=== PATIENT | female | born 1975 | race Caucasian/White ===

== ENCOUNTER → 2017-08-20 08:50 | Outpatient (CLI) | payer OTHER, SELFPAY ==
--- NOTE | 2017-08-20 08:53 | BI_ITS ---
MAMMOGRAPHY - BILATERAL SCREENING REASON FOR EXAM: Female, 42 years old. Routine annual screening examination. PERTINENT HISTORY: Grandmother with breast cancer. Prior left excisional breast biopsy. TECHNIQUE: Digital bilateral breast maris (3D mammographic acquisition) in the CC and MLO projections. 2-D mediolateral oblique (MLO) and craniocaudad (CC) views of both breasts were obtained. CAD: Full Field Digital Mammography with Computer Added Detection was performed. COMPARISON: Comparison is made with prior study dated July 05, 2016 and June 26, 2015. FINDINGS: Breast Composition: The breasts are heterogeneously dense, which may obscure small masses. There are no dominant masses or suspicious calcifications. No other significant abnormalities are identified. There has been no significant change since the prior study. BI/SCREENING MAMM (CAD), BILAT IMPRESSION: Stable bilateral screening mammogram. Yearly follow-up mammogram recommended. (A) ASSESSMENT CATEGORY: BIRADS Category 1: Negative. A letter regarding these results will be sent to the patient by the facility within 30 days. Approximately 10% of breast cancers are not detected by mammography. A normal mammogram should not delay biopsy of a clinically suspicious abnormality. [id number] Electronically Signed: Fazal Mejia MD at 8:19 EDT Tel [phone], Service support ,
== END ==
PROVIDERS: Family Provider Family Medicine; PCP Family Medicine; Visit Provider Obstetrics & Gynecology
DX: Z12.31 Encounter for screening mammogram for malignant neoplasm of breast (principal)
CPT/HCPCS: 77063; 77067

== ENCOUNTER → 2018-06-02 11:39 | Outpatient (CLI) | payer OTHER, SELFPAY ==
[2018-06-02 16:00] LABS: T4 Free Direct 1.27 ng/dL (0.76-1.46); Thyroid Stim Hormone (TSH) 0.24 uIU/mL (0.358-3.74)
== END ==
PROVIDERS: Family Provider Family Medicine; PCP Family Medicine; Referring Provider Family Medicine; Visit Provider Family Medicine
DX: E03.9 Hypothyroidism, unspecified (principal)
CPT/HCPCS: 36415; 84439; 84443

== ENCOUNTER 2018-09-06 06:41 | Emergency (ER) | payer OTHER, SELFPAY ==
[2018-09-06 06:41] VITALS: BP 136/88; PULSE 86; RESP 18; TEMP 36.7; O2SAT 100; BMI 30.1
[2018-09-06] MEDS: morphine 8 MG/ML Syringe IM (07:09)
[2018-09-06] MEDS: diazePAM 5 MG Tablet PO (07:09)
--- NOTE | 2018-09-06 07:28 | ED.VISSUMM ---
- ER Visit Summary Date of Service: 09/06/18 Chief Complaint: Back pain History of Present Illness: The patient is a 43 F who presents the emergency department with low back pain. Patient had been doing yoga but recently stopped. In the past couple weeks she has had episodic low back pain that has improved. Unfortunately yesterday she went to get off the couch when she stood up had muscle spasm in the low back. There are no lower extremity radicular symptoms. No bowel or bladder dysfunction. No fevers or history of IV drug use. No rashes. Patient has been using heat. She took Flexeril and anti-inflammatories. She has also been using a back brace. She feels better in the Cobra position. Painful motion. Physical Examination: Afebrile vital signs are stable Gen: Well-nourished well-developed Head: Normocephalic atraumatic Eyes: Perrl EOMI ENT: TMs clear no rhinorrhea moist mucous membranes Neck: Supple no lymphadenopathy no JVD nontender CVS: Regular rate rhythm no murmurs normal S1-S2 Respiratory: No distress clear to auscultation bilaterally chest nontender Abdomen: Soft nontender nondistended normal bowel sounds no masses Back: Bilateral paraspinal muscle spasm of the lumbar region. No rashes or fluctuance to suggest abscess. Extremity: Nontender no edema Skin: Normal color no rash Neuro: alert orientated ?3 CN II-XII intact normal strength sensation Psych: Normal affect normal mood Emergency Department Course and Treatment: Patient received a dose of morphine and Valium. She is feeling some improvement. Patient be discharged home with instruction for Valium and Henderson. Discontinue Flexeril. Continue anti-inflammatories. Follow-up with primary care. We talked about stretching exercises as well as after this episode has resolved ways to decrease likelihood of recurrence such as strengthening core and daily stretching. Impression: 1. Acute lumbar muscle spasm This note was generated with [employer] dictation software. It may contain incorrect words, spelling, and punctuation that were not noted in review of the chart prior to signing ED Disposition - Plan for ED Patient: Disposition: Home or Assisted Living Instructions: BACK SPASM, No Trauma Prescriptions: Hydrocodone Bitart/Apap 5-325 [Henderson 5MG-325MG] 1 tab PO Q6H PRN PRN 3 Days #12 tab PRN Reason: Pain Prescription Printed Diazepam [Valium] 5 mg PO Q8 PRN 5 Days #15 tab PRN Reason: Muscle Spasm Prescription Printed Referrals: Mat Gregorio MD [Primary Care Provider] - 1 Week if not improving Additional Instructions: Until stretching. Continue heat. Would also recommend continued anti-inflammatories (i.e. Motrin 600 mg every 6 hours with food)
--- NOTE | 2018-09-06 08:05 | ED.RN ---
Spouse to return in 1 hr. Okay by solid waste landfill technician and MD for pt to stay and rest in room until returns. pt needs courtesy driver home. Rx x 2 sent to inpatient pharmacy for quick fills.
[2018-09-06 09:12] VITALS: BP 136/74; PULSE 72; RESP 16; O2SAT 99
== END 2018-09-06 09:13 | disposition home or self-care (01) ==
PROVIDERS: Emergency Provider Emergency Medicine; Family Provider Family Medicine; PCP Family Medicine
DX: M62.830 Muscle spasm of back (principal); Z79.899 Other long term (current) drug therapy
CPT/HCPCS: 96372; 99283

== ENCOUNTER → 2018-10-05 13:35 | Outpatient (CLI) | payer OTHER, SELFPAY ==
[2018-09-06 06:41] VITALS: BMI 30.1
== END ==
PROVIDERS: Family Provider Family Medicine; PCP Family Medicine; Referring Provider Family Medicine; Visit Provider Family Medicine
DX: R19.7 Diarrhea, unspecified (principal)
CPT/HCPCS: 87506

== ENCOUNTER → 2018-11-01 07:52 | Outpatient (CLI) | payer OTHER, SELFPAY ==
--- NOTE | 2018-11-01 07:56 | BI_ITS ---
MAMMOGRAPHY - BILATERAL SCREENING REASON FOR EXAM: Female, 43 years old. Routine annual screening examination. PERTINENT HISTORY: Grandmother with breast cancer. Remote left excisional breast biopsy. TECHNIQUE: Digital bilateral breast britney (3D mammographic acquisition) in the CC and MLO projections. 2-D mediolateral oblique (MLO) and craniocaudad (CC) views of both breasts were obtained. CAD: Full Field Digital Mammography with Computer Added Detection was performed. COMPARISON: Comparison is made with prior study dated August 20, 2017 and July 05, 2016. FINDINGS: Breast Composition: The breasts are heterogeneously dense, which may obscure small masses. There are no dominant masses or suspicious calcifications. No other significant abnormalities are identified. There has been no significant change since the prior study. BI/SCREEN MAMM (CAD) W/BRITNEY BILAT IMPRESSION: Stable bilateral screening mammogram. Yearly follow-up mammogram recommended. (A) ASSESSMENT CATEGORY: BIRADS Category 1: Negative. A letter regarding these results will be sent to the patient by the facility within 30 days. Approximately 10% of breast cancers are not detected by mammography. A normal mammogram should not delay biopsy of a clinically suspicious abnormality. [id number] Electronically Signed: Fazal Mejia, at 10:15 EDT , Service support ,
== END ==
PROVIDERS: Family Provider Family Medicine; PCP Family Medicine; Referring Provider Obstetrics & Gynecology; Visit Provider Obstetrics & Gynecology
DX: Z12.31 Encounter for screening mammogram for malignant neoplasm of breast (principal)
CPT/HCPCS: 77063; 77067

== ENCOUNTER → 2019-03-15 09:48 | Outpatient (CLI) | payer OTHER, SELFPAY ==
[2019-03-15 13:15] LABS: T4 Free Direct 1.18 ng/dL (0.76-1.46); Thyroid Stim Hormone (TSH) 0.85 uIU/mL (0.358-3.74)
== END ==
PROVIDERS: PCP Family Medicine; Referring Provider Family Medicine; Visit Provider Family Medicine
DX: E03.9 Hypothyroidism, unspecified (principal)
CPT/HCPCS: 36415; 84439; 84443

== ENCOUNTER 2019-05-17 11:08 | Emergency (ER) | payer OTHER, SELFPAY ==
[2019-05-17] VITALS (7 sets, daily range): BP systolic 126–157; BP diastolic 83–101; PULSE 71–94; RESP 16–18; TEMP 37.4–37.6; O2SAT 96–100; BMI 30.9
--- NOTE | 2019-05-17 11:42 | RAD_ITS ---
We are attempting to reach an attending provider to discuss findings. An addendum with communication details will be sent when the communication is complete. STUDY: X-RAY CHEST REASON FOR EXAM: Female, 43 years old. FEVER SINCE TUESDAY. NO COUGH TECHNIQUE: PA and lateral views of the chest. COMPARISON: 03/21/1959 FINDINGS: 4 cm oval opacity me upper right lung worrisome for a mass and correlation with CT the chest with contrast is recommended. There is no demonstrated pleural abnormality. Normal size heart. Normal mediastinum and cameron. Normal visualized pulmonary arteries. Normal visualized aortic arch and descending thoracic aorta. Normal visualized thoracic spine. Normal visualized ribs, clavicles, and shoulders. There is no demonstrated abnormality of the visualized soft tissue structures of the upper abdomen. RAD/Chest PA and Lateral IMPRESSION: Suspect 4 cm right upper lobe lung mass and correlation with CT the chest with contrast is recommended. Electronically Signed: Russ Blackburn MD at 12:51 EDT Tel , Service support ,
[2019-05-17 12:52] LABS: Mucous, Urine 0 SEEN /hpf (<or=2+); Red Blood Cells-Urine 0 SEEN /hpf (0-5); White Blood Cells 0 SEEN /hpf (0-5)
[2019-05-17 12:53] LABS: Absolute Lymphocyte Count 1.07 X10^3/uL (0.83-4.51); Absolute Neutrophil Count 4.5 X10^3/uL (2.0-7.7); Basophil# 0.02 X10^3/uL; Basophil% 0.3 % (0-1); Hematocrit 39.3 % (37-47); Lymphocyte # 1.07 X10^3/ul (4.0); Mean Corp Hgb Conc 33.1 g/dL (32-36); Mean Corpuscular Hgb 29.3 pg (27.0-32.0); Mean Corpuscular Volume 88.7 fL (81-99); Mean Platelet Vol. 10.6 fl (6.2-12.0); Monocyte# 0.65 X10^3/uL; Monocyte% 10.3 % (0-10); NRBC Flagged by Analyzer 0 % (0-5); Neutrophil # 4.54 X10^3/uL (2.7-7.7); Neutrophil % 72.1 % (47-70); Platelet Count 202 K/mm3 (150-450); RBC Distribution Width CV 12.3 % (11.6-14.6); RBC Distribution Width SD 40.1 fl (35.1-43.9); Red Blood Count 4.43 M/mm3 (4.2-5.4); White Blood Count 6.3 K/mm3 (4.4-11.0)
--- NOTE | 2019-05-17 12:59 | CT_ITS ---
STUDY: CT CHEST WITH CONTRAST REASON FOR EXAM: Female, 43 years old. RUL MASS RADIATION DOSAGE (If Supplied By Facility): CTDIvol = ( 14.06 ) mGy, DLP = ( 495.37 ) mGycm TECHNIQUE: Transaxial imaging was performed following intravenous administration of IV 100mL [id number]. Individualized dose optimization techniques were used for this CT. COMPARISON: Chest x-ray earlier today FINDINGS: 3.4 x 3.8 cm density in the right upper lobe lungs with a few peripheral air bronchograms likely consistent with focal pneumonia but bronchogenic carcinoma cannot be excluded. Follow-up is recommended after resolution of symptoms to document resolution. No other pulmonary nodules or masses. There is no demonstrated pleural abnormality. Normal heart and pericardium. Normal mediastinum. Normal hilar regions. Normal enhanced pulmonary arteries. Normal aorta arch and descending thoracic aorta. Normal osseous structures. There is no demonstrated abnormality of the visualized upper abdomen. CT/Chest WITH Contrast IMPRESSION: 3.4 x 3.8 cm right upper lobe density likely consistent with focal pneumonia. Bronchogenic carcinoma cannot be excluded. Follow-up is recommended after resolution of symptoms to document resolution to exclude mass. Electronically Signed: Russ Blackburn MD at 14:03 EDT Tel , Service support ,
[2019-05-17 13:02] LABS: Color, Urine Straw (Yellow); Glucose, Dipstick Normal (Normal); Ketone-Dipstick Negative (Negative); Leukocyte Esterase-Dipstick Negative /ul (Negative); Nitrite-Dipstick Negative (Negative); Occult Blood-Urine Negative /ul (Negative); Protein-Dipstick Negative (Negative); Specific Gravity, Urine 1.005 (1.002-1.030); Urine Bilirubin Dipstick Negative (Negative); Urine Clarity Clear (Clear); Urine Urobilinogen Normal (Normal)
[2019-05-17] MEDS: 0.9% Normal Saline 1,000 ML 999 ML IV (13:15)
[2019-05-17 13:26] LABS: Bacteria RARE /hpf (None Seen); Squamous Epithelial Cells - UA 0-5 SEEN /hpf (5-10)
[2019-05-17 13:31] LABS: Anion Gap 6 (5-15); BUN 9 mg/dL (7-18); Calcium,Total 9.1 mg/dL (8.5-10.1); Chloride 106 mmol/L (98-107); Creatinine, Serum 0.75 mg/dL (0.55-1.02); EST Glomerular Filtration Rate 89 mL/min (>60); Est Glom Filt Rate - Afr Amer 108 mL/min (>60); Estimated Creatinine Clearance 84.38 ml/min; Glucose 94 mg/dL (74-106); Potassium 3.8 mmol/L (3.5-5.1); Sodium Level 140 mmol/L (136-145)
--- NOTE | 2019-05-17 13:32 | CT_ITS ---
STUDY: CT BRAIN WITH CONTRAST REASON FOR EXAM: Female, 43 years old. HEADACHE RADIATION DOSAGE (If Supplied By Facility): CTDIvol = ( 44.99 ) mGy, DLP = ( 745.49 ) mGycm TECHNIQUE: Transaxial CT imaging of the brain was performed post contrast administration. The examination was performed with intravenous administration of . Individualized dose optimization techniques were used for this CT. COMPARISON: None. FINDINGS: Normal soft tissue structures. Normal calvarium. Normal size ventricles and extra-axial spaces for the patient''s age. Normal white matter tracts of the cerebral hemispheres. Normal basal ganglia and thalami. Normal brainstem. Normal cerebellum. There is no intracranial hemorrhage. There are no findings of an acute ischemic infarction. Normal visualized paranasal sinuses. CT/Brain/Head WITH Contrast IMPRESSION: Normal enhanced CT scan of the brain. Electronically Signed: Russ Blackburn MD at 13:59 EDT Tel , Service support ,
--- NOTE | 2019-05-17 15:06 | ED.DCSUM_ITS ---
- ER Visit Summary Date of Service: 05/17/19 Chief Complaint: Fever and headache History of Present Illness: The patient is a 43 F Pap smear history of hypothyroidism. Prior hysterectomy. Patient states since Tuesday she is had a fever. Rest diffuse headache. No neck pain. No cough. No shortness of br eath. No dysuria. No abdominal pain. No sinus congestion. She denies any abdominal pain. Physical Examination: Vitals female no acute distress vital signs stable afebrile. Temperature 99.4. She does not look septic or toxic. H EENT exam normal. Moist use membranes. Neck nontender no lymphadenopathy no meningismus able to touch chin to chest. Lungs clear to auscultation bilaterally. Heart regular rhythm rate about 90 no murmur. Abdomen soft nontender normal bowel sounds no peritoneal signs. Patient moving all 4 extremities. Calves nontender. Skin no rash. Back nontender. Neurologically she is awake alert with no focal motor deficits. Test Results: CBC shows a white count of 6. H&H of 13 and 39. No bands. Chest x-ray is either a right upper lobe round pneumonia versus a mass. Radiologist was concerned for a possible mass. Clinically I thought it was a pneumonia. CAT scan was obtained and shows a right upper lobe suspicious for pneumonia. CAT scan scan of the brain was done because of the concern for possible chest mass and it was read as normal. Emergency Department Course and Treatment: Days of fever worked up for infectious etiology. Diagnosed with a right upper lobe pneumonia and started on Levaquin. Repeat exam patient is doing well at 1500 p.m. She and I discussed all of her test results. Treatment Plan: Levaquin daily. Tylenol Motrin for fever. I spoke with her primary care physician. Disposition: Discharge Impression: Acute right upper lobe pneumonia Fever This note was generated with [employer] dictation software. It may contain incorrect words, spelling, and punctuation that were not noted in review of the chart prior to signing ED Disposition - Plan for ED Patient: Referrals: Mat Gregorio MD [Primary Care Provider] -
--- NOTE | 2019-05-17 15:10 | ED.DEP ---
ED Disposition - Plan for ED Patient: Disposition: Home or Assisted Living Instructions: Pneumonia Prescriptions: levoFLOXacin tablet [Levaquin tablet] 750 mg PO DAILY #4 tab Prescription Printed Referrals: Mat Gregorio MD [Primary Care Provider] - 1 Week if not improving Additional Instructions: Plenty of fluids and rest. Alternate Tylenol Motrin for fever. Levaquin 1 dose a day for the next 4 days. Start tomorrow we gave you your first dose here. I also spoke to Dr. Gregorio discussed with his office they can call your son and an outpatient chest x-ray.
[2019-05-17] MEDS: levoFLOXacin 750 MG Tablet PO (15:19)
== END 2019-05-17 15:26 | disposition home or self-care (01) ==
PROVIDERS: Emergency Provider Emergency Medicine; PCP Family Medicine
DX: J18.9 Pneumonia, unspecified organism (principal); R50.9 Fever, unspecified; R51 Headache; E03.9 Hypothyroidism, unspecified; Z79.899 Other long term (current) drug therapy
CPT/HCPCS: 70460; 71046; 71260; 80048; 81001; 85025; 96360; 96361; 99284; J7030; Q9967

== ENCOUNTER → 2019-06-11 11:30 | Outpatient (CLI) | payer OTHER, SELFPAY ==
[2019-05-17 11:10] VITALS: BMI 30.9
--- NOTE | 2019-06-11 11:35 | RAD_ITS ---
STUDY: X-RAY CHEST REASON FOR EXAM: Female, 43 years old. PNEUMONIA FOLLOW UP. PATIENT STILL HAVING COUGHING. TECHNIQUE: PA and lateral views of the chest. COMPARISON: Comparison is made with prior study dated May 17, 2019. FINDINGS: The lungs are clear and expanded. There is no demonstrated pleural abnormality. Normal size heart. Normal mediastinum and cameron. Normal visualized pulmonary arteries. Normal visualized aortic arch and descending thoracic aorta. Normal visualized thoracic spine. Normal visualized ribs, clavicles, and shoulders. There is no demonstrated abnormality of the visualized soft tissue structures of the upper abdomen. RAD/Chest PA and Lateral IMPRESSION: The previously seen right upper lobe pneumonia has cleared. Electronically Signed: Fazal Mejia, at 11:50 EDT , Service support ,
== END ==
LOC: MTLAB 11:33 → MTRAD 11:34
PROVIDERS: PCP Family Medicine; Referring Provider Family Medicine; Visit Provider Family Medicine
DX: R05 Cough (principal)
CPT/HCPCS: 71046

== ENCOUNTER → 2019-09-04 | Outpatient (CLI) | payer OTHER, SELFPAY ==
[2019-05-17 11:10] VITALS: BMI 30.9
== END | disposition home or self-care (01) ==
LOC: LABSPEC 15:27
PROVIDERS: Referring Provider Otolaryngology Otolaryngology/Facial Plastic Surgery; Visit Provider Otolaryngology Otolaryngology/Facial Plastic Surgery
DX: J32.9 Chronic sinusitis, unspecified (principal)
CPT/HCPCS: 87070; 87205

== ENCOUNTER → 2019-09-25 07:00 | Outpatient (CLI) | payer OTHER, SELFPAY ==
[2019-05-17 11:10] VITALS: BMI 30.9
--- NOTE | 2019-09-25 07:04 | CT_ITS ---
STUDY: CT MAXILLOFACIAL SINUSES REASON FOR EXAM: Female, 44 years old. CHRONIC SINUSITIS, BLAS PROTOCOL, SINUS CONGESTION LT SIDE WORSE THAN RIGHT RADIATION DOSAGE (If Supplied By Facility): CTDIvol = ( 33.06 ) mGy, DLP = ( 780.13 ) mGycm TECHNIQUE: The patient was scanned in a multi detector CT scanner. High resolution axial imaging was performed without the administration of intravenous contrast material. Sagittal and coronal images were reconstructed. Individualized dose optimization techniques were used for this CT. COMPARISON: None. FINDINGS: FRONTAL SINUSES: Severe diffuse mucosal thickening of the left frontal sinus without air-fluid level.. ETHMOIDAL SINUSES: Moderate to severe focal thickening of the left ethmoid sinuses and mild to moderate mucosal thickening on the right. MAXILLARY SINUSES: Mucosal thickening of left maxillary sinus without air-fluid level and moderate mucosal thickening on the right. SPHENOIDAL SINUSES: Normal aeration, without mucosal inflammatory disease. There is patency of the left maxillary infundibuli with normal uncinate processes, ethmoid bullae, and hiatus semilunaris. The right maxillary sinus ostium and infundibulum are occluded due to mucosal thickening. Esperanza bullosa deformity of the right middle turbinate. Normal left middle turbinate.. Normal bilateral inferior turbinates. Normal midline nasal septum. There is patency of the bilateral nasal airways. The visualized osseous structures are normal. The visualized bilateral orbital contents are normal. CT/Sinus/Facial Bone IMPRESSION: Bilateral maxillary ethmoid and left frontal sinus disease without air-fluid levels likely chronic. Findings as above Electronically Signed: Juan Carlos Casey MD at 17:15 EDT , Service support ,
== END ==
PROVIDERS: PCP Family Medicine; Referring Provider Otolaryngology Otolaryngology/Facial Plastic Surgery; Visit Provider Otolaryngology Otolaryngology/Facial Plastic Surgery
DX: J32.9 Chronic sinusitis, unspecified (principal)
CPT/HCPCS: 70486

== ENCOUNTER → 2019-11-29 07:44 | Outpatient (CLI) | payer OTHER, SELFPAY ==
[2019-05-17 11:10] VITALS: BMI 30.9
--- NOTE | 2019-11-29 07:46 | BI_ITS ---
MAMMOGRAPHY - BILATERAL SCREENING REASON FOR EXAM: Female, 44 years old. Routine annual screening examination. PERTINENT HISTORY: Grandmother with breast cancer. Remote left excisional breast biopsy. TECHNIQUE: Digital bilateral breast britney (3D mammographic acquisition) in the CC and MLO projections. 2-D mediolateral oblique (MLO) and craniocaudad (CC) views of both breasts were obtained. CAD: Full Field Digital Mammography with Computer Added Detection was performed. COMPARISON: Comparison is made with prior examination dated 11/01/2018 and 08/20/2017. FINDINGS: Breast Composition: The breasts are heterogeneously dense, which may obscure small masses. There are no dominant masses or suspicious calcifications. No other significant abnormalities are identified. There has been no significant change since the prior study. BI/SCREEN MAMM (CAD) W/BRITNEY BILAT IMPRESSION: Stable bilateral screening mammogram. Yearly follow-up mammogram recommended. (A) ASSESSMENT CATEGORY: BIRADS Category 1: Negative. A letter regarding these results will be sent to the patient by the facility within 30 days. Approximately 10% of breast cancers are not detected by mammography. A normal mammogram should not delay biopsy of a clinically suspicious abnormality. [id number] Electronically Signed: Fazal Mejia, at 11:04 EDT , Service support ,
== END ==
PROVIDERS: PCP Family Medicine; Referring Provider Obstetrics & Gynecology; Visit Provider Obstetrics & Gynecology
DX: Z12.31 Encounter for screening mammogram for malignant neoplasm of breast (principal); Z80.3 Family history of malignant neoplasm of breast
CPT/HCPCS: 77063; 77067

== ENCOUNTER 2020-05-05 07:51 | Emergency (ER) | payer OTHER, SELFPAY ==
[2019-05-17 11:10] VITALS: BMI 30.9
[2020-05-05 07:52] VITALS: BP 140/93; PULSE 74; RESP 15; TEMP 36.2; O2SAT 100; BMI 32.5
--- NOTE | 2020-05-05 08:09 | ED.DCSUM_ITS ---
- ER Visit Summary Date of Service: 05/05/20 Chief Complaint: Chest and back pain History of Present Illness: The patient is a 44 F only significant past medical history is with prior hysterectomy and hypothyroidism. Also has a prior history of a hiatal hernia. Patient's had no cardiac history. Is never had a DVT or PE. No recent travel, surgery or immobilization. No significant family history of cardiac disease. She is a non-smoker. States that she thought she was having indigestion yesterday started around 4 PM. Took some Tums and Pepcid with relief. It intermittently came and went since yesterday afternoon. Says at times it does radiate into her back. She denies any vomiting, diarrhea or melena. No dysuria. No fever or chills. No shortness of breath. No significant cough. No hemoptysis. Physical Examination: Middle-aged female no acute distress vital signs stable afebrile. Pulse ox 100% on room air no signs of hypoxia. H EENT exam unremarkable. Neck nontender no lymphadenopathy. No JVD. Lungs clear to auscultation bilaterally. Heart regular rhythm rate about 70 no murmur. Chest wall nontender. Abdomen soft nontender normal bowel sounds no peritoneal signs. Right upper quadrant nontender. Patient moving all 4 extremities. Neurovascular intact. Calves are nontender without edema or cords. Equal symmetrical radial pulses. Neurologically the patient is awake and alert with no focal motor deficits. Test Results: EKG shows a normal sinus rhythm rate of 69 with no acute signs of TN or ischemia. Basically a normal EKG. Normal. Chemistries normal. Troponin normal. Chest x-ray portable 1 view interpreted by myself and also the radiologist shows no acute abnormality. Normal cardiac silhouette mediastinum. Normal aorta. No signs of dissection. Lung weir normal. Repeat exam patient is doing well at 10:15 AM. She will be treated with GI cocktail and Protonix. Clinically this appears to be gastroesophageal reflux. Emergency Department Course and Treatment: Patient with chest discomfort. Does not have significant cardiac risk factors. Its not exertional. There is no dyspnea. She has no DVT or PE significant risk factors. This may be reflux. She will undergo a cardiac work-up. I do not think it is a dissection. Treatment Plan: Prescription for Protonix. Follow-up with her primary care physician. Return if worse. Disposition: Discharge Impression: Acute chest pain secondary to gastroesophageal reflux This note was generated with [employer] dictation software. It may contain incorrect words, spelling, and punctuation that were not noted in review of the chart prior to signing ED Disposition - Plan for ED Patient: Referrals: Mat Gregorio MD [Primary Care Provider] -
--- NOTE | 2020-05-05 08:13 | EKG12_ITS ---
Test Reason : CP Blood Pressure : / mmHG Vent. Rate : 069 BPM Atrial Rate : 069 BPM P-R Int : 178 ms QRS Dur : 092 ms QT Int : 392 ms P-R-T Axes : 056 -02 041 degrees QTc Int : 420 ms Normal sinus rhythm Normal ECG Confirmed by CAMPBELL [place], EMIGDIO ([id number]), online content editor PIPO LUGO ([id number]) on 05/07/2020 10:08:55 AM Referred By: MR Confirmed By:EMIGDIO HIGHTOWER MD
[2020-05-05 08:16] VITALS: O2SAT 100
--- NOTE | 2020-05-05 08:20 | RAD_ITS ---
STUDY: X-RAY CHEST REASON FOR EXAM: Female, 44 years old. Chest pain TECHNIQUE: Single AP portable view of the chest. COMPARISON: Comparison is made with prior study dated 06/11/2019. FINDINGS: EKG electrodes are seen. The lungs are clear and expanded. There is no demonstrated pleural abnormality. Normal size heart. Normal mediastinum and cameron. Normal visualized pulmonary arteries. Normal visualized aortic arch and descending thoracic aorta. Normal visualized thoracic spine. Normal visualized ribs, clavicles, and shoulders. There is no demonstrated abnormality of the visualized soft tissue structures of the upper abdomen. RAD/Chest 1 View (Portable) IMPRESSION: Normal x-ray examination of the chest. Electronically Signed: Fazal Mejia MD at 8:35 EDT , Service support ,
[2020-05-05 08:21] LABS: Absolute Lymphocyte Count 2.02 X10^3/uL (0.83-4.51); Absolute Neutrophil Count 4.4 X10^3/uL (2.0-7.7); Basophil# 0.04 X10^3/uL; Basophil% 0.6 % (0-1); Eosinophils% 2.8 % (0-5); Hematocrit 39.5 % (37-47); Lymphocyte # 2.02 X10^3/ul (4.0); Lymphocyte % 28.5 % (19-41); Mean Corp Hgb Conc 32.9 g/dL (32-36); Mean Platelet Vol. 10.9 fl (6.2-12.0); Monocyte# 0.37 X10^3/uL; Monocyte% 5.2 % (0-10); NRBC Flagged by Analyzer 0 % (0-5); Neutrophil # 4.44 X10^3/uL (2.7-7.7); Neutrophil % 62.8 % (47-70); Platelet Count 225 K/mm3 (150-450); RBC Distribution Width CV 12.4 % (11.6-14.6); RBC Distribution Width SD 41.1 fl (35.1-43.9); Red Blood Count 4.34 M/mm3 (4.2-5.4); White Blood Count 7.1 K/mm3 (4.4-11.0)
[2020-05-05 08:59] LABS: Anion Gap 5 (5-15); BUN 15 mg/dL (7-18); BUN/Creat Ratio 19.1 RATIO (10-20); Calcium,Total 8.8 mg/dL (8.5-10.1); Chloride 107 mmol/L (98-107); Creatinine, Serum 0.79 mg/dL (0.55-1.02); EST Glomerular Filtration Rate 85 mL/min (>60); Est Glom Filt Rate - Afr Amer 102 mL/min (>60); Estimated Creatinine Clearance 79.29 ml/min; Glucose 98 mg/dL (74-106); Potassium 4.3 mmol/L (3.5-5.1); Sodium Level 138 mmol/L (136-145)
[2020-05-05 09:08] VITALS: BP 151/102; PULSE 66; RESP 17; O2SAT 100
[2020-05-05 10:12] VITALS: BP 131/116; PULSE 62; RESP 13; O2SAT 100
--- NOTE | 2020-05-05 10:20 | ED.DEP ---
ED Disposition - Plan for ED Patient: Disposition: Home or Assisted Living Instructions: ED Chest Pain, Uncertain Cause, ED GERD (Adult) Prescriptions: Pantoprazole Sodium [Protonix] 40 mg PO DAILY #30 tab Prescription Printed Referrals: Mat Gregorio MD [Primary Care Provider] - 3-5 Days if not improving Additional Instructions: Avoid alcohol and/or spicy or greasy foods. Protonix 40 mg twice a day for the first week and then once a day after that. Follow-up with your primary care physician.
[2020-05-05] MEDS: Pantoprazole Sodium 40 MG Tablet PO (10:47)
[2020-05-05] MEDS: Mag Hydrox/Al Hydrox/Simeth 30 ML UDC PO (10:47)
[2020-05-05 11:32] VITALS: BP 120/86; PULSE 82; RESP 16; O2SAT 98
== END 2020-05-05 11:33 | disposition home or self-care (01) ==
PROVIDERS: Emergency Provider Emergency Medicine; PCP Family Medicine
DX: K21.9 Gastro-esophageal reflux disease without esophagitis (principal); M54.9 Dorsalgia, unspecified; E03.9 Hypothyroidism, unspecified; Z79.899 Other long term (current) drug therapy
CPT/HCPCS: 71045; 80048; 84484; 85025; 93005; 99285; A4216

== ENCOUNTER → 2020-05-13 09:14 | Outpatient (CLI) | payer OTHER, SELFPAY ==
[2020-05-05 07:52] VITALS: BMI 32.5
[2020-05-13 10:54] LABS: T4 Free Direct 1.02 ng/dL (0.76-1.46)
== END ==
PROVIDERS: PCP Family Medicine; Visit Provider Family Medicine
DX: E03.9 Hypothyroidism, unspecified (principal)
CPT/HCPCS: 36415; 84439; 84443

== ENCOUNTER → 2020-07-11 08:51 | Outpatient (CLI) | payer OTHER, SELFPAY ==
[2020-07-11 10:42] LABS: T4 Free Direct 1.42 ng/dL (0.76-1.46); Thyroid Stim Hormone (TSH) 1.86 uIU/mL (0.358-3.74)
== END ==
PROVIDERS: PCP Family Medicine; Referring Provider Family Medicine; Visit Provider Family Medicine
DX: E03.9 Hypothyroidism, unspecified (principal)
CPT/HCPCS: 36415; 84439; 84443

== ENCOUNTER → 2020-07-30 09:03 | Outpatient (CLI) | payer OTHER, SELFPAY ==
--- NOTE | 2020-07-30 09:12 | RAD_ITS ---
STUDY: X-RAY - ESOPHAGUS (BARIUM SWALLOW) WITH FLUOROSCOPY REASON FOR EXAM: Female, 44 years old. Diaphragmatic hernia without obstruction or gangrene TECHNIQUE: 18 view(s) of the esophagus were obtained following swallowing of barium. FLUOROSCOPY TIME (if supplied): (28 seconds) minutes/seconds COMPARISON: None. FINDINGS: There is no demonstrated esophageal foreign body. There is no demonstrated stricture or mucosal abnormality. Normal gastroesophageal junction, without a demonstrated hiatal hernia. The patient ingested a 12 mm tablet of barium without any difficulty. Normal visualized aortic arch and descending thoracic aorta. Normal visualized pulmonary parenchyma. Normal visualized osseous structures of the thorax. RAD/Esophagus Single Contrast IMPRESSION: Normal plain film x-ray examination (barium swallow) of the esophagus. Electronically Signed: Fazal Mejia MD at 11:11 EDT , Service support ,
== END ==
PROVIDERS: PCP Family Medicine; Referring Provider Family Medicine; Visit Provider Family Medicine
DX: K44.9 Diaphragmatic hernia without obstruction or gangrene (principal)
CPT/HCPCS: 74220

== ENCOUNTER → 2020-11-04 16:34 | Outpatient (CLI) | payer OTHER, SELFPAY ==
--- NOTE | 2020-11-04 16:38 | RAD_ITS ---
STUDY: X-RAY - LUMBAR SPINE REASON FOR EXAM: Female, 45 years old. BACK PAIN TECHNIQUE: 5 view(s) of the lumbar spine were obtained. COMPARISON: None FINDINGS: Normal lumbar lordosis. There is no substantial scoliosis. There is a normal alignment of the vertebrae. Normal vertebral bodies and endplates. Normal disc space heights. The soft tissue structures are unremarkable. RAD/L/S Spine Min 4 Views IMPRESSION: Normal x-ray examination of the lumbar spine. Electronically Signed: Russ Blackburn MD at 13:55 EDT Tel , Service support ,
== END ==
PROVIDERS: PCP Family Medicine
DX: M54.2 Cervicalgia (principal)
CPT/HCPCS: 72110

== ENCOUNTER → 2020-12-19 11:49 | Outpatient (CLI) | payer OTHER, SELFPAY ==
[2020-12-19 15:49] LABS: Anion Gap 9 (5-15); BUN 17 mg/dL (7-18); BUN/Creat Ratio 21.7 RATIO (10-20); Chloride 105 mmol/L (98-107); Cholesterol 207 mg/dL (200); Creatinine, Serum 0.78 mg/dL (0.55-1.02); EST Glomerular Filtration Rate 85 mL/min (>60); Est Glom Filt Rate - Afr Amer 103 mL/min (>60); Glucose 80 mg/dL (74-106); High Density Lipoprotein 106 mg/dL; Potassium 4.4 mmol/L (3.5-5.1); Sodium Level 138 mmol/L (136-145); T4 Free Direct 1.37 ng/dL (0.76-1.46); Thyroid Stim Hormone (TSH) 0.87 uIU/mL (0.358-3.74); Triglycerides 107 mg/dL; Very Low Density Lipoprotein 21 mg/dL (5-40)
== END ==
PROVIDERS: PCP Family Medicine; Referring Provider Family Medicine; Visit Provider Family Medicine
DX: Z00.00 Encounter for general adult medical examination without abnormal findings (principal); E03.9 Hypothyroidism, unspecified
CPT/HCPCS: 36415; 80048; 80061; 84439; 84443

== ENCOUNTER 2021-04-16 15:19 | Outpatient (CLI) | payer OTHER, SELFPAY ==
--- NOTE | 2021-04-16 15:21 | BI_ITS ---
MAMMOGRAPHY - BILATERAL SCREENING REASON FOR EXAM: Female, 45 years old. Routine annual screening examination. PERTINENT HISTORY: Grandmother with breast cancer. Remote left excisional breast biopsy. TECHNIQUE: Digital bilateral breast britney (3D mammographic acquisition) in the CC and MLO projections. 2-D mediolateral oblique (MLO) and craniocaudad (CC) views of both breasts were obtained. CAD: Full Field Digital Mammography with Computer Added Detection was performed. COMPARISON: Comparison is made with prior study 11/29/2019 and 11/01/2018. FINDINGS: Breast Composition: The breasts are heterogeneously dense, which may obscure small masses. There are no dominant masses or suspicious calcifications. Stable small benign-appearing bilateral axillary lymph nodes. No other significant abnormalities are identified. There has been no significant change since the prior study. BI/SCRN MAMM (CAD)W/BRITNEY BILAT IMPRESSION: Stable bilateral screening mammogram. Yearly follow-up mammogram recommended. (A) ASSESSMENT CATEGORY: BIRADS Category 2: Benign. A letter regarding these results will be sent to the patient by the facility within 30 days. Approximately 10% of breast cancers are not detected by mammography. A normal mammogram should not delay biopsy of a clinically suspicious abnormality. [id number] Electronically Signed: Fazal Mejia MD at 16:12 EST ,
== END 2021-04-16 23:59 | disposition home or self-care (01) ==
LOC: OPBI 15:19
PROVIDERS: PCP Family Medicine; Visit Provider Obstetrics & Gynecology
DX: Z12.31 Encounter for screening mammogram for malignant neoplasm of breast (principal)
CPT/HCPCS: 77063; 77067

== ENCOUNTER → 2022-05-04 | Outpatient (CLI) | payer OTHER, SELFPAY ==
--- NOTE | 2022-05-04 15:59 | BI_ITS ---
MAMMOGRAPHY - BILATERAL SCREENING 3-D TOMOSYNTHESIS REASON FOR EXAM: Female, 46 years old. Routine screening PERTINENT HISTORY: Grandmother with breast cancer.. TECHNIQUE: 2-D mammograms and 3-D Tomosynthesis of the breast (s) were performed. CAD was performed. COMPARISON: 04/16/2021 FINDINGS: The breast composition is heterogeneously dense that can obscure small breast masses. Scattered benign calcifications are seen. No dense spiculated masses or suspicious microcalcifications are identified. No architectural distortion is identified. There is no skin thickening or retraction. There has been no significant change since the prior study. BI/SCRN MAMM (CAD)W/BRITNEY BILAT IMPRESSION: No mammographic signs of malignancy. Routine yearly mammograms recommended. ASSESSMENT CATEGORY: BIRADS Category 2: Benign. A letter regarding these results will be sent to the patient by the facility within 30 days. FOLLOW UP RECOMMENDATION: Yearly follow up mammogram recommended. (A) Approximately 10% of breast cancers are not detected by mammography. A normal mammogram should not delay biopsy of a clinically suspicious abnormality. Electronically Signed: Davey Clarke MD at 8:16 EDT ,
--- NOTE | 2022-05-04 16:05 | BD_ITS ---
STUDY: DUAL ENERGY X-RAY ABSORPTIOMETRY / DXA REASON FOR EXAM: Female, 46 years old. [id number] TECHNIQUE: Bone Mineral Density (BMD) measurements of lumbar spine and bilateral hips were obtained. COMPARISON: None. FINDINGS: Lumbar Spine (L1-L4): g/cm2 (0.916) / T-score (-1.2) / Z-score (-0.8) Findings are suggestive of osteopenia with a low fracture risk. Left Femur Total: g/cm2 (1.008) / T-score (0.5) / Z-score (0.8) Left Femoral Neck: g/cm2 (0.847) / T-score (0.0) / Z-score (0.4) Right Femur Total: g/cm2 (0.981) / T-score (0.3) / Z-score (0.6) Right Femoral Neck: g/cm2 (0.854) / T-score (0.0) / Z-score (0.5) BD/Dexa Bone Density Study IMPRESSION: The patient is considered normal as outlined below according to World [employer] Organization (WHO) criteria with a low fracture risk. Reference Information: The T-score is the number of standard deviations above or below the standard which is normal for young adults at their peak bone mineral density. The World Health Organization (WHO) interprets the T-scores as follows: Above -1 Normal bone density Between -1 and -2.5 Osteopenia Equal to / or below -2.5 Osteoporosis As a practical clinical guideline, osteopenia may be graded as follows: Mild -1 through -1.5 Moderate -1.6 through -2.0 Severe -2.1 through -2.4 The Z-score is the number of standard deviations above or below age-matched controls. A Z-score of less than -1.5 would be considered abnormal. References: 1. NIH Osteoporosis and Related Bone Diseases www osteo.org 2. International Society for Clinical Densitometry www iscd.org 3. National Osteoporosis Foundation www nof.org Electronically Signed: Fazal Mejia MD at 12:53 EDT ,
== END | disposition home or self-care (01) ==
LOC: OPBD 15:58
PROVIDERS: PCP Family Medicine; Visit Provider Student in an Organized Health Care Education/Training Program
DX: Z12.31 Encounter for screening mammogram for malignant neoplasm of breast (principal); N95.1 Menopausal and female climacteric states
CPT/HCPCS: 77063; 77067; 77080

== ENCOUNTER 2022-07-30 09:33 | Emergency (ER) | payer OTHER, SELFPAY ==
[2022-07-30 09:34] VITALS: BP 171/85; PULSE 99; RESP 16; TEMP 35.5; O2SAT 100; BMI 34.7
--- NOTE | 2022-07-30 10:13 | EDS_ITS ---
HPI History of Present Illness Chief Complaint: Dizziness Informant: patient Onset/Context/Timing Onset: Today Context: Sudden Onset Timing: Intermittent Quality: Lightheaded Location: Generalized Worsened by: Nothing Relieved by: Nothing Narrative Narrative: Patient presents with lightheadedness, sweats, and diarrhea that began suddenly today. Patient states she had a similar episode 2 days ago. Patient states this lasted approximately 10 minutes and then she felt nauseated afterwards. Patient states she feels lightheaded like she might pass out. Patient states nothing makes it better nothing makes it worse. Patient stated she had some mild throbbing in the right side of her neck 2 days ago and now she has a warm sensation over the left side of her neck today. Patient denies any headaches. Patient admits to some subjective chills. PFSH [facility] Medical History GERD (gastroesophageal reflux disease) Hypothyroid Home Medications estradiol 2 mg tablet 2 tab PO DAILY 05/14/13 [History Last Taken 01/19/15] levothyroxine 125 mcg tablet 125 mcg PO DINNER 05/17/19 [History Last Taken Unknown] pantoprazole 40 mg tablet,delayed release 40 mg PO DAILY #30 tabs 05/05/20 [Rx Last Taken Unknown] Allergy/AdvReac Type Severity Reaction Status Date / Time No Known Allergies Allergy Verified 07/30/22 09:34 Family History (Updated 05/03/22 @ 08:31 by Donna Kidd) Father Colon polyps Surgical History Hx of left breast biopsy Social History Smoking Status: Never smoker ROS ROS ED Constitutional Constitutional ED: Reports chills, subjective and sweats; Denies fever(s) Eyes Eyes: Denies blurry vision or change in vision ENT ENT ED: Denies rhinorrhea or sore throat Cardiovascular Cardiovascular: Denies chest pain or palpitations Respiratory/Chest Respiratory/Chest: Denies cough or dyspnea Gastrointestinal Gastrointestinal: Reports diarrhea and nausea; Denies abdominal pain or vomiting Genitourinary Genitourinary ED: Denies dysuria or hematuria Musculoskeletal Musculoskeletal: Reports neck pain; Denies back pain Integumentary Denies abscess or rash Neurologic Neurologic: Denies headache(s) or weakness Allergic/Immunologic Allergic/Immunologic ED: Denies mouth swelling or urticaria EXAM Physical Exam Const Vital Signs: 07/30/22 09:34 07/30/22 10:36 07/30/22 11:39 Temperature 95.9 F L Temperature Source Temporal Pulse Rate 99 83 Pulse Rate [Lying] 93 Pulse Rate [Standing (for 1 minute prior to obtaining)] 103 H Respiratory Rate 16 16 Blood Pressure 171/85 H 115/90 H Blood Pressure [Lying] 129/78 H Blood Pressure [Sitting (for 1 minute prior to obtaining)] 130/85 H Blood Pressure [Standing (for 1 minute prior to obtaining)] 152/81 H Blood Pressure Mean 113 98 Blood Pressure Mean [Lying] 95 Blood Pressure Mean [Sitting (for 1 minute prior to obtaining)] 100 Blood Pressure Mean [Standing (for 1 minute prior to obtaining)] 104 Pulse Ox 100 98 Oxygen Delivery Method Room Air Room Air Positive well nourished and well developed General Appearance ED: well developed and NAD HEENT Reports moist mucous membranes Neck supple and no JVD Resp normal respiratory effort and clear to auscultation bilaterally Cardio regular rate, regular rhythm and no murmurs GI normal to inspection, nondistended, normoactive bowel sounds and non-tender Palpation: soft Extremity normal to inspection General Extremety ED: Negative for edema or tenderness General Extremity: Negative for edema Neuro oriented x3, CN's II-XII intact bilaterally and no sensory deficits noted Sensorium / Orientation: alert Motor Exam: strength 5/5 throughout Psych mental status grossly normal Skin no rashes or lesions noted MDM MDM MDM Narrative Medical decision making narrative: Differential diagnosis includes cardiac dysrhythmia, cardiac ischemia, electrolyte abnormality, acute kidney injury, urinary tract infection, and dehydration. EKG will be obtained to assess for cardiac dysrhythmia and cardiac ischemia. CBC will be obtained to assess for anemia and leukocytosis. Basic metabolic profile will be obtained to assess for electrolyte abnormality and renal function. Urinalysis will be obtained to assess for urinary tract infection and hematuria. High-sensitivity troponin will be obtained to assess for cardiac ischemia. 2-hour repeat high-sensitivity troponin will be obtained to assess for ongoing cardiac ischemia. COVID-19 rapid antigen will be obtained to assess for COVID-19 infection. Influenza A and influenza B antigens will be obtained to assess for influenza infection. Lab Data Attestation: I reviewed the patient's lab results. Lab results narrative: CBC was reviewed and was within normal limits. Basic metabolic profile was reviewed and was within normal limits. Urinalysis was reviewed. There is no evidence of urinary tract infection or hematuria. High-sensitivity troponin was reviewed and was normal at 4. COVID-19 rapid antigen was reviewed and was positive. Influenza A and influenza B antigens were reviewed and were negative. Labs: Laboratory Results - last 24 hr 07/30/22 07/30/22 07/30/22 10:00 10:00 11:31 WBC 5.3 RBC 4.66 Hgb 13.9 Hct 41.4 MCV 88.8 MCH 29.8 MCHC 33.6 RDW Std Deviation 41.1 RDW Coeff of Keith 12.5 Plt Count 237 MPV 11.0 Immature Gran % (Auto) 0.200 Neut % (Auto) 59.6 Lymph % (Auto) 28.9 Gosper % (Auto) 6.7 Eos % (Auto) 3.8 Baso % (Auto) 0.8 Absolute Neuts (auto) 3.1 Absolute Lymphs (auto) 1.52 Nucleated RBC % 0 Sodium 138 Potassium 4.3 Chloride 106 Carbon Dioxide 31.0 Anion Gap 1 L BUN 20 H Creatinine 0.93 Estim Creat Clear Calc 65.97 Est GFR (MDRD) Af Amer 83 Est GFR (MDRD) Non-Af 69 BUN/Creatinine Ratio 21.5 H Glucose 96 Calcium 9.0 Troponin I High Sens 4 Urine Color Straw Urine Clarity Sl. Cloudy Urine pH 7.0 Ur Specific Ayr 1.005 Urine Protein Negative Urine Glucose (UA) Normal Urine Ketones Negative Urine Occult Blood Negative Urine Nitrite Negative Urine Bilirubin Negative Urine Urobilinogen Normal Ur Leukocyte Esterase Negative Urine RBC 0 SEEN Urine WBC 0 SEEN Ur Squamous Epith Cells 0-5 SEEN Urine Bacteria 0 SEEN Urine Mucus 0 SEEN EKG Initial EKG: Attestation: I personally reviewed and interpreted this EKG as follows: Interpretation: Sinus Rhythm (78) and No Acute Injury Pattern Comments: EKG was obtained. On my independent interpretation, it showed a normal sinus rhythm with a rate of 78. MN interval, QRS interval, and QTc inter vals were all normal. Crowley was normal. There are no acute ST or T wave changes. Prior EKG tracings: available for review Prior: Unchanged (05/05/2020) Treatment and Re-Evaluation :: Patient was advised of her findings. Patient was instructed to drink plenty of fluids. Patient was instructed take Tylenol or ibuprofen as needed for any pain or fevers. Patient was instructed to follow-up with her primary care physician in 5 to 7 days. Patient understood and was agreeable with the plan. All questions were answered. Discharge Plan Triage Chief Complaint: Dizziness ED Provider: Tu Lang Dx/Rx/DC Orders Clinical Impression: COVID-19 Instructions: Coronavirus Disease 2019 (COVID-19): Caring for Yourself or Others Prescriptions: No Action estradiol 2 MG tablet 2 tab PO DAILY Label Comments: levothyroxine 125 MCG tablet 125 mcg PO DINNER pantoprazole 40 MG tablet 40 mg PO DAILY Qty: 30 0RF Rx Instructions: Twice daily the first week and then just daily after that. Primary Care Provider: Mat Gregorio Referrals: Mat Gregorio MD [Primary Care Provider] - 5-7 Days Disposition Disposition: Home, Self Care
--- NOTE | 2022-07-30 10:21 | EKG12_ITS ---
Test Reason : DIZZINESS Blood Pressure : / mmHG Vent. Rate : 078 BPM Atrial Rate : 078 BPM P-R Int : 178 ms QRS Dur : 078 ms QT Int : 380 ms P-R-T Axes : 045 -06 028 degrees QTc Int : 433 ms Normal sinus rhythm Normal ECG Confirmed by CAMPBELL NJ, EMIGDIO ([id number]), managing editor PIPO LUGO ([id number]) on 08/02/2022 1:35:16 PM Referred By: SARAH BETH Confirmed By:EMIGDIO HIGHTOWER MD
[2022-07-30] MEDS: Ondansetron 4 MG/2 ML Vial IV (10:28)
[2022-07-30] MEDS: 0.9% Normal Saline 1,000 ML 1000 ML IV (10:29)
[2022-07-30 10:33] LABS: Absolute Lymphocyte Count 1.52 X10^3/uL (0.83-4.51); Absolute Neutrophil Count 3.1 X10^3/uL (2.0-7.7); Basophil# 0.04 X10^3/uL; Basophil% 0.8 % (0-1); Eosinophils% 3.8 % (0-5); Hematocrit 41.4 % (37-47); Hemoglobin 13.9 g/dL (12.0-15.0); Lymphocyte # 1.52 X10^3/ul (0.83-4.51); Lymphocyte % 28.9 % (19-41); Mean Corp Hgb Conc 33.6 g/dL (32-36); Mean Corpuscular Hgb 29.8 pg (27.0-32.0); Mean Corpuscular Volume 88.8 fL (81-99); Monocyte# 0.35 X10^3/uL; Monocyte% 6.7 % (0-10); NRBC Flagged by Analyzer 0 % (0-5); Neutrophil # 3.14 X10^3/uL (2.7-7.7); Neutrophil % 59.6 % (47-70); Platelet Count 237 K/mm3 (150-450); RBC Distribution Width CV 12.5 % (11.6-14.6); RBC Distribution Width SD 41.1 fl (35.1-43.9); Red Blood Count 4.66 M/mm3 (4.2-5.4); White Blood Count 5.3 K/mm3 (4.4-11.0)
[2022-07-30 10:36] VITALS: BP 129/78; BP 130/85; BP 152/81; PULSE 103; PULSE 93
[2022-07-30 10:47] LABS: Anion Gap 1 (5-15); BUN 20 mg/dL (7-18); BUN/Creat Ratio 21.5 RATIO (10-20); Chloride 106 mmol/L (98-107); Creatinine, Serum 0.93 mg/dL (0.55-1.02); EST Glomerular Filtration Rate 69 mL/min (>60); Est Glom Filt Rate - Afr Amer 83 mL/min (>60); Estimated Creatinine Clearance 65.97 ml/min; Glucose 96 mg/dL (74-106); Potassium 4.3 mmol/L (3.5-5.1); Sodium Level 138 mmol/L (136-145); Troponin-I HS (w/2H Reflex) 4 pg/mL (3.0-54.0)
[2022-07-30 11:35] LABS: Bacteria 0 SEEN /hpf (None Seen); Mucous, Urine 0 SEEN /hpf (<or=2+); Red Blood Cells-Urine 0 SEEN /hpf (0-5); White Blood Cells 0 SEEN /hpf (0-5)
[2022-07-30 11:37] LABS: Color, Urine Straw (Yellow); Glucose, Dipstick Normal (Normal); Ketone-Dipstick Negative (Negative); Leukocyte Esterase-Dipstick Negative /ul (Negative); Nitrite-Dipstick Negative (Negative); Occult Blood-Urine Negative /ul (Negative); Protein-Dipstick Negative (Negative); Specific Gravity, Urine 1.005 (1.002-1.030); Urine Bilirubin Dipstick Negative (Negative); Urine Clarity Sl. Cloudy (Clear); Urine Urobilinogen Normal (Normal)
[2022-07-30 11:39] VITALS: BP 115/90; PULSE 83; RESP 16; O2SAT 98
[2022-07-30 11:46] LABS: Squamous Epithelial Cells - UA 0-5 SEEN /hpf (5-10)
[2022-07-30 12:25] LABS: Reflex Troponin-HS? (from REC) Y
[2022-07-30 13:07] VITALS: BP 129/74; PULSE 84; RESP 16; O2SAT 98
== END 2022-07-30 13:08 | disposition home or self-care (01) ==
PROVIDERS: Emergency Provider Emergency Medicine; PCP Family Medicine; Visit Provider Emergency Medicine
DX: U07.1 COVID-19 (principal); R42 Dizziness and giddiness
CPT/HCPCS: 80048; 81001; 84484; 85025; 87428; 93005; 96361; 96374; 99284; J7030; A4216; J2405

== ENCOUNTER → 2022-09-03 | Outpatient (CLI) | payer OTHER, SELFPAY ==
[2022-09-03 16:49] LABS: T4 Free Direct 1.18 ng/dL (0.76-1.46); Thyroid Stim Hormone (TSH) 1.38 uIU/mL (0.358-3.74)
== END | disposition home or self-care (01) ==
LOC: MTLAB 13:18
PROVIDERS: PCP Family Medicine; Referring Provider Family Medicine; Visit Provider Family Medicine
DX: E03.9 Hypothyroidism, unspecified (principal)
CPT/HCPCS: 36415; 84439; 84443

== ENCOUNTER 2023-01-05 07:52 | Day surgery (SDC) | payer OTHER, SELFPAY ==
--- NOTE | 2023-01-04 | COLBX_PTH ---
PATIENT: ARIANNA MONTEZ LOC: EN U#:[id number] AGE/SX: 47/F ROOM: RE01/05/[address]: Dr. Rasta Zhang DO : 1975 BED: DIS: 01/05/2023 SPEC #: [id number] RECD: 01/05/23 11:40 STATUS: ODALIS MARY #: [id number] MEHDI: 01/04/23 00:[address]: Rasta Zhang DEPT: SURGICAL PATHOLOGY RECD BY: Kassy Salomon ENTERED: 01/05/23 11:40 SP TYPE: COLON BX IVETTE DR: Dr. Max Gregorio MD Tissues: A - Sigmoid colon biopsy B - Rectum, NOS Procedures: Surgery Specimen Level IV HEADER OPERATION: Colonoscopy with polypectomy - open access (MAC) PRE-OP DIAGNOSIS: Screening TISSUE SUBMITTED: A - Sigmoid polyp, B - Rectal polyp MICROSCOPIC DIAGNOSIS A. Sigmoid colon polyp, biopsy: Fragments of tubular adenoma. B. Rectal polyp, biopsy: Tubular adenoma. AM:jeanne 01/06/2023 MICROSCOPIC DESCRIPTION Slides are reviewed. GROSS DESCRIPTION A - Received in fixative is one container labeled with the patient's name and designated sigmoid polyp. The specimen consists of two irregular fragments of light harrison soft tissue that in aggregate measure 1.6 x 0.9 x 0.5 cm. The specimen is totally submitted in one cassette. B - Received in fixative is one container labeled with the patient's name and designated rectal polyp. The specimen consists of one irregular fragment of light harrison soft tissue that measures 0.5 x 0.3 x 0.1 cm. The specimen is totally submitted in one cassette. / AM:jeanne 01/05/2023 TC:5 CPT: 90557 x2
[2023-01-05] VITALS (7 sets, daily range): BP systolic 112–134; BP diastolic 71–89; PULSE 62–80; RESP 16; TEMP 36.1–36.7; O2SAT 96–99; BMI 34.8
--- NOTE | 2023-01-05 08:03 | PCM.HP.STD ---
HPI - General General Date of Admission: 01/05/23 Date of Service: 01/05/23 Chief Complaint: Screening colonoscopy HPI Narrative ARIANNA MONTEZ, is a 47 F who presents today for a screening colonoscopy. She has not had a colonoscopy in the past. She also has a past medical history of only hypothyroidism.?Controlled with daily medicines. She is not having any shortness of breath. She denies any chest pain or weakness. She denies any abdominal pain. She denies any cramping. She denies any blood per rectum. All other 16 review systems are negative except as per past mentioned HPI. [facility] Medical History (Updated 01/03/23 @ 10:44 by Katelyn Rice) Alcohol use Easy bruising Former smoker GERD (gastroesophageal reflux disease) Hypothyroid Home Medications estradiol 2 mg tablet 1.5 mg PO DAILY 05/14/13 [History Last Taken 01/19/15] levothyroxine 150 mcg tablet (Synthroid) 150 mcg PO DAILY 01/03/23 [History Last Taken Unknown] Allergy/AdvReac Type Severity Reaction Status Date / Time No Known Allergies Allergy Verified 01/03/23 10:32 Family History (Updated 05/03/22 @ 08:31 by Donna Kidd) Father Colon polyps Surgical History (Updated 01/03/23 @ 10:44 by Katelyn Rice) History of hysterectomy History of lymph node excision History of wisdom tooth extraction Hx of left breast biopsy Social History Smoking Status: Former smoker ROS Review of Systems ROS Unobtainable: other Constitutional Constitutional: Denies fatigue, fever(s), poor appetite, weight gain or weight loss ENT HEENT: Denies mouth lesions Cardiovascular Cardiovascular: Denies abdominal bloating, abdominal edema or abdominal pain Respiratory/Chest Respiratory/Chest: Denies change in mental status, change in phlegm color, chest congestion or chest tightness Gastrointestinal Gastrointestinal: Denies belching, bloating, change in bowel habits, change in stool character, chewing difficulty, coffee ground emesis, constipation, cramping, diarrhea, dyspepsia, dysphagia, early satiety, excessive flatus, fecal incontinence, heartburn, hematemesis, hematochezia, hemorrhoids, loose stools, melena, nausea, odynophagia, rectal bleeding, tenesmus, vomiting or weight changes Genitourinary Genitourinary: Denies abdominal discomfort, burning urination or itching Musculoskeletal Musculoskeletal: Reports as per HPI; Denies muscle weakness or myalgias Integumentary Integumentary: Denies jaundice Neurologic Neurologic: Denies lack of coordination or weakness Psychiatric Psychiatric: Denies confusion, depression, memory loss, mood swings, paranoia or suicidal ideation Endocrine Endocrinology: Denies systems reviewed and no addt'l complaints, except as documented Hematologic/Lymphatic Hematologic/Lymphatic: Denies anemia, easy bleeding, easy bruising or lymphadenopathy Allergic/Immunologic Allergic/Immunologic: Denies systems reviewed and no addt'l complaints, except as documented Physical Exam Const alert General Appearance: cooperative Orientation / Consciousness: oriented to person HEENT hearing grossly normal bilaterally Head and Scalp: normal to inspection Face and Sinus: face symmetric Nose: external nose normal Mouth: oral and palatal mucosa normal Eyes conjunctivae normal General Eye: normal appearance of both eyes Neck full ROM General: normal visual inspection Lymph Lymphatic: no lymphadenopathy noted Chest inspection of chest normal and palpation of chest normal Chest: symmetrical chest wall rise Resp normal respiratory effort Effort and Inspection: able to speak in complete sentences Cardio regular rate GI non-distended Percussion: normal to percussion Rectal Exam: deferred Neuro Speech: speech normal Gait (Neuro): normal gait Assessment & Plan Assessment/Plan (1) Encounter for screening for malignant neoplasm of colon: PLAN: She will undergo screening colonoscopy. She was explained alternatives, risk, benefits include not withstanding bleeding, infection, sepsis, perforation, need for emergent urgent . She will have an ASA of 2.
[2023-01-05] MEDS: Lactated Ringers 1,000 ML 15 ML IV (08:19)
--- NOTE | 2023-01-05 09:08 | OP.COLON_ITS ---
Patient Name: Karen Oropeza Procedure Date: 01/05/2023 8:42 AM Date of : 1975 Age: 47 Procedure: Colonoscopy Indications: Screening for colorectal malignant neoplasm Providers: Rasta Zhang DO Referring MD: Rasta Zhang DO Medicines: Monitored Anesthesia Care Patient Profile: This is a 47 year old female. Refer to note in patient chart for documentation of history and physical. Last Colonoscopy: none. The patient's first colonoscopy is today. Complications: No immediate complications. Procedure: Pre-Anesthesia Assessment: - Prior to the procedure, a History and Physical was performed, and patient medications and allergies were reviewed. The patient is competent. The risks and benefits of the procedure and the sedation options and risks were discussed with the patient. All questions were answered and informed consent was obtained. Patient identification and proposed procedure were verified by the physician in the pre-procedure area. Mental Status Examination: alert and oriented. Airway Examination: normal oropharyngeal airway and neck mobility. Respiratory Examination: clear to auscultation. CV Examination: normal. Prophylactic Antibiotics: The patient does not require prophylactic antibiotics. Prior Anticoagulants: The patient has taken no anticoagulant or antiplatelet agents. ASA Grade Assessment: II - A patient with mild systemic disease. After reviewing the risks and benefits, the patient was deemed in satisfactory condition to undergo the procedure. The anesthesia plan was to use monitored anesthesia care (MAC). Immediately prior to administration of medications, the patient was re-assessed for adequacy to receive sedatives. The heart rate, respiratory rate, oxygen saturations, blood pressure, adequacy of pulmonary ventilation, and response to care were monitored throughout the procedure. The physical status of the patient was re-assessed after the procedure. After I obtained informed consent, the scope was passed under direct vision. Throughout the procedure, the patient's blood pressure, pulse, and oxygen saturations were monitored continuously. The was introduced through the anus and advanced to the cecum, identified by appendiceal orifice and ileocecal valve. The colonoscopy was performed without difficulty. The patient tolerated the procedure well. The quality of the bowel preparation was adequate. The ileocecal valve, appendiceal orifice, and rectum were photographed. Scope In: 8:49:50 AM Scope Withdrawal Time 0 hours 8 minutes 54 seconds Scope Out: 9:02:18 AM Total Procedure Duration Time 0 hours 12 minutes 28 seconds Findings: The perianal and digital rectal examinations were normal. Three sessile polyps were found in the rectum and recto-sigmoid colon. The polyps were 1 to 2 mm in size. These polyps were removed with a hot snare. Resection and retrieval were complete. Verification of patient identification for the specimen was done. Estimated blood loss was minimal. Many small and large-mouthed diverticula were found in the recto-sigmoid colon, sigmoid colon and descending colon. Impression: - Three 1 to 2 mm polyps in the rectum and at the recto-sigmoid colon, removed with a hot snare. Resected and retrieved. - Diverticulosis in the recto-sigmoid colon, in the sigmoid colon and in the descending colon. Recommendation: - Discharge patient to home. - Resume previous diet. - Continue present medications. - Await pathology results. - Repeat colonoscopy in 3 years for surveillance. Procedure Code(s): --- Professional --- 66804, Colonoscopy, flexible; with removal of tumor(s), polyp(s), or other lesion(s) by snare technique CPT copyright 2021 [employer]. All rights reserved. The codes documented in this report are preliminary and upon chemical compounder review may be revised to meet current compliance requirements. Rasta Zhang DO 01/05/2023 9:07:53 AM This report has been signed electronically. Number of Addenda: 0 Note Initiated On: 01/05/2023 8:42 AM
--- NOTE | 2023-01-05 09:08 | OP.CCLET_ITS ---
01/05/2023 Mat Gregorio [address] [place] [address] Re : Colonoscopy procedure for Karen Oropeza Dear Dr. Gregorio This procedure was performed on Thursday, January 05, 2023. My impressions and recommendations are as follows: Impressions : - Three 1 to 2 mm polyps in the rectum and at the recto-sigmoid colon, removed with a hot snare. Resected and retrieved. - Diverticulosis in the recto-sigmoid colon, in the sigmoid colon and in the descending colon. Recommendations : - Discharge patient to home. - Resume previous diet. - Continue present medications. - Await pathology results. - Repeat colonoscopy in 3 years for surveillance. My findings are described in the full procedure note, which is enclosed. If I can be of further assistance, please feel free to contact me at . Sincerely, Rasta Zhang, 01/05/2023 9:07:53 AM This report has been signed electronically.
== END 2023-01-05 09:45 | disposition home or self-care (01) ==
LOC: EN 07:53 → AC 07:54
PROVIDERS: PCP Family Medicine; Referring Provider Family Medicine; Visit Provider Internal Medicine Gastroenterology
PROC: 0DJD8ZZ Inspection of Lower Intestinal Tract, Via Natural or Artificial Opening Endoscopic (ICD-10-PCS; CPT 45378; principal; 2023-01-05 08:55)
DX: Z12.11 Encounter for screening for malignant neoplasm of colon (principal); K57.30 Diverticulosis of large intestine without perforation or abscess without bleeding; Z87.891 Personal history of nicotine dependence; E03.9 Hypothyroidism, unspecified; Z79.890 Hormone replacement therapy; D12.5 Benign neoplasm of sigmoid colon; D12.8 Benign neoplasm of rectum
CPT/HCPCS: 45385; 88305; J7120; J2405

== ENCOUNTER → 2023-04-11 | Outpatient (CLI) | payer OTHER, SELFPAY ==
[2023-04-11 18:02] LABS: Hemoglobin 13.3 g/dL (12.0-15.0); Mean Corp Hgb Conc 32.4 g/dL (32-36); Mean Corpuscular Hgb 28.8 pg (27.0-32.0); Mean Corpuscular Volume 88.7 fL (81-99); Mean Platelet Vol. 11.2 fl (6.2-12.0); Platelet Count 277 K/mm3 (150-450); RBC Distribution Width CV 11.8 % (11.6-14.6); RBC Distribution Width SD 37.7 fl (35.1-43.9); Red Blood Count 4.62 M/mm3 (4.2-5.4); White Blood Count 7.6 K/mm3 (4.4-11.0)
[2023-04-11 18:18] LABS: Vitamin D,25 Hydroxy 25.2 ng/mL
[2023-04-11 18:37] LABS: T4 Free Direct 1.58 ng/dL (0.76-1.46); Thyroid Stim Hormone (TSH) 0.33 uIU/mL (0.358-3.74)
== END | disposition home or self-care (01) ==
LOC: MTLAB 16:27
PROVIDERS: PCP Family Medicine; Referring Provider Family Medicine; Visit Provider Family Medicine
DX: F43.20 Adjustment disorder, unspecified (principal); E55.9 Vitamin D deficiency, unspecified; E03.9 Hypothyroidism, unspecified
CPT/HCPCS: 36415; 82306; 84439; 84443; 85027

== ENCOUNTER → 2023-05-23 | Outpatient (CLI) | payer OTHER, SELFPAY ==
--- NOTE | 2023-05-23 07:35 | BI_ITS ---
MAMMOGRAPHY - BILATERAL SCREENING REASON FOR EXAM: Female, 47 years old. Routine annual screening examination. PERTINENT HISTORY: Grandmother with breast cancer. Prior left excisional breast biopsy. TECHNIQUE: Digital bilateral breast britney (3D mammographic acquisition) in the CC and MLO projections. 2-D mediolateral oblique (MLO) and craniocaudad (CC) views of both breasts were obtained. CAD: Full Field Digital Mammography with Computer Added Detection was performed. COMPARISON: Comparison is made with prior study of May 04, 2022 and April 16, 2021. FINDINGS: Breast Composition: The breasts are heterogeneously dense, which may obscure small masses. There are no dominant masses or suspicious calcifications. Stable fat-containing bilateral axillary lymph nodes. No other significant abnormalities are identified. There has been no significant change since the prior study. BI/SCRN MAMM (CAD)W/BRITNEY BILAT IMPRESSION: Stable bilateral screening mammogram. Yearly follow-up mammogram recommended. (A) ASSESSMENT CATEGORY: BIRADS Category 2: Benign. A letter regarding these results will be sent to the patient by the facility within 30 days. Approximately 10% of breast cancers are not detected by mammography. A normal mammogram should not delay biopsy of a clinically suspicious abnormality. [id number] Electronically Signed: Fazal Mejia MD at 9:00 EDT ,
== END | disposition home or self-care (01) ==
LOC: OPBI 07:35
PROVIDERS: PCP Family Medicine; Referring Provider Obstetrics & Gynecology; Visit Provider Obstetrics & Gynecology
DX: Z12.31 Encounter for screening mammogram for malignant neoplasm of breast (principal)
CPT/HCPCS: 77063; 77067

== ENCOUNTER → 2024-03-16 | Outpatient (CLI) | payer OTHER, SELFPAY ==
--- NOTE | 2024-03-16 07:54 | EKG12_ITS ---
Test Reason : PRE MENOPAUSAE Blood Pressure : */* mmHG Vent. Rate : 59 BPM Atrial Rate : 59 BPM P-R Int : 158 ms QRS Dur : 74 ms QT Int : 400 ms P-R-T Axes : 19 -19 39 degrees QTcB Int : 396 ms Sinus bradycardia Low voltage QRS Borderline ECG When compared with ECG of 30-Jul-2022 10:30, No significant change was found Confirmed by RONAK NJ, WILLIAM ([id number]), fashion editor JOSE AMAYA ([id number]) on 03/19/2024 2:06:36 PM Referred By: Ely Hernandez Confirmed By: WILLIAM SIMONS MD
== END | disposition home or self-care (01) ==
LOC: PSN 07:54
PROVIDERS: PCP Family Medicine; Referring Provider Obstetrics & Gynecology; Visit Provider Obstetrics & Gynecology
DX: E66.89 Other obesity not elsewhere classified (principal)
CPT/HCPCS: 93005

== ENCOUNTER → 2024-04-06 | Outpatient (CLI) | payer OTHER, SELFPAY ==
[2024-04-06 15:20] LABS: Absolute Lymphocyte Count 2.02 X10^3/uL (0.83-4.51); Absolute Neutrophil Count 2.9 X10^3/uL (2.0-7.7); Basophil# 0.04 X10^3/uL; Basophil% 0.7 % (0-1); Eosinophils% 3.6 % (0-5); Hematocrit 40.4 % (37-47); Hemoglobin 13.2 g/dL (12.0-15.0); Lymphocyte # 2.02 X10^3/ul (0.83-4.51); Lymphocyte % 36.4 % (19-41); Mean Corp Hgb Conc 32.7 g/dL (32-36); Mean Corpuscular Hgb 28.3 pg (27.0-32.0); Mean Corpuscular Volume 86.7 fL (81-99); Mean Platelet Vol. 11.7 fl (6.2-12.0); Monocyte# 0.36 X10^3/uL; Monocyte% 6.5 % (0-10); NRBC Flagged by Analyzer 0 % (0-5); Neutrophil # 2.92 X10^3/uL (2.7-7.7); Neutrophil % 52.6 % (47-70); Platelet Count 242 K/mm3 (150-450); RBC Distribution Width CV 12.3 % (11.6-14.6); RBC Distribution Width SD 39.3 fl (35.1-43.9); Red Blood Count 4.66 M/mm3 (4.2-5.4); White Blood Count 5.6 K/mm3 (4.4-11.0)
[2024-04-06 15:52] LABS: Hemoglobin A1c 5.1 % (3.8-5.6)
[2024-04-06 16:38] LABS: ALB/GLOB Ratio 1.1 RATIO (0.9-2.4); AST(SGOT) 14 U/L (15-37); Alanine Aminotransfer ALT/SGPT 19 U/L (13-56); Albumin, Serum 3.7 g/dL (3.2-5.0); Alkaline Phosphatase 82 U/L (45-117); Anion Gap 8 (5-15); BUN 18 mg/dL (7-18); BUN/Creat Ratio 22.6 RATIO (10-20); Calcium,Total 9.4 mg/dL (8.5-10.1); Chloride 106 mmol/L (98-107); Cholesterol 213 mg/dL (200); EST Glomerular Filtration Rate 82 mL/min (>60); Est Glom Filt Rate - Afr Amer 99 mL/min (>60); Free T3 2.8 pg/mL (2.18-3.98); Globulin 3.5 g/dL (2.2-4.2); Glucose 73 mg/dL (74-106); High Density Lipoprotein 96 mg/dL; Potassium 3.9 mmol/L (3.5-5.1); Protein, Total 7.2 g/dL (6.4-8.2); Sodium Level 138 mmol/L (136-145); T4 Free Direct 1.41 ng/dL (0.76-1.46); Triglycerides 83 mg/dL; Very Low Density Lipoprotein 17 mg/dL (5-40)
[2024-04-10 14:09] LABS: Vitamin D 1,25-Dihydroxy 29.4 pg/mL (24.8-81.5)
== END | disposition home or self-care (01) ==
LOC: MTLAB 11:41
PROVIDERS: Obstetrics & Gynecology; PCP Family Medicine; Referring Provider Family Medicine; Visit Provider Family Medicine
DX: E03.9 Hypothyroidism, unspecified (principal); E66.89 Other obesity not elsewhere classified
CPT/HCPCS: 80053; 80061; 82652; 83036; 84439; 84443; 84481; 85025

== ENCOUNTER 2024-07-03 07:51 | Outpatient (RCR) | payer OTHER, SELFPAY | END 2024-07-21 23:59 | LOC: NS 07:51 | PROVIDERS: PCP Family Medicine; Referring Provider Nurse Practitioner Family; Visit Provider Nurse Practitioner Family | DX: Z71.3 Dietary counseling and surveillance (principal) | CPT/HCPCS: 97802 ==

== ENCOUNTER → 2024-07-25 | Outpatient (CLI) | payer OTHER, SELFPAY ==
--- NOTE | 2024-07-25 08:30 | BI_ITS ---
EXAM: SCRN MAMM (CAD)W/BRITNEY BILAT 07/25/2024 CLINICAL HISTORY: F, Age 48 y/o , SCREENING TECHNIQUE: Bilateral screening digital breast tomosynthesis with 2D and 3D images. Computer aided detection. COMPARISON: Prior exam(s) dated 05/23/2023, 05/04/2022, 04/16/2021. FINDINGS: TISSUE DENSITY: The breast tissue is composed of scattered area of fibroglandular density. Bilateral Breast Mammographic Findings: No significant masses, calcifications or other abnormalities are identified. BI/SCRN MAMM (CAD)W/BRITNEY BILAT IMPRESSION: Right Breast: BIRADS 1 NEGATIVE. Left Breast: BIRADS 1 NEGATIVE. OVERALL FINAL ASSESSMENT: BIRADS 1 NEGATIVE. RECOMMENDATION: Routine annual follow-up in 1 Year A letter with findings and recommendations will be mailed to the patient. Reading Location: [id number]
== END | disposition home or self-care (01) ==
LOC: OPBI 08:21
PROVIDERS: PCP Family Medicine; Referring Provider Obstetrics & Gynecology; Visit Provider Obstetrics & Gynecology
DX: Z12.31 Encounter for screening mammogram for malignant neoplasm of breast (principal)
CPT/HCPCS: 77063; 77067

== ENCOUNTER 2024-07-26 10:03 | Outpatient (CLI) | payer OTHER, SELFPAY ==
[2024-07-26 13:07] LABS: Free T3 3.9 pg/mL (2.18-3.98); Thyroid Stim Hormone (TSH) 0.011 uIU/mL (0.300-4.200)
[2024-07-26 13:54] LABS: Vitamin D,25 Hydroxy 25.5 ng/mL (30-100)
== END 2024-07-26 23:59 | disposition home or self-care (01) ==
PROVIDERS: PCP Family Medicine; Referring Provider Nurse Practitioner Family; Visit Provider Nurse Practitioner Family
DX: E55.9 Vitamin D deficiency, unspecified (principal); Z13.29 Encounter for screening for other suspected endocrine disorder
CPT/HCPCS: 36415; 82306; 84439; 84443; 84481

== ENCOUNTER 2024-08-02 08:25 | Outpatient (RCR) | payer OTHER, SELFPAY | END 2024-08-20 23:59 | LOC: NS 08:25 | PROVIDERS: PCP Family Medicine; Referring Provider Nurse Practitioner Family; Visit Provider Nurse Practitioner Family | DX: Z71.3 Dietary counseling and surveillance (principal) | CPT/HCPCS: 97803 ==

== ENCOUNTER → 2024-10-25 | Outpatient (CLI) | payer OTHER, SELFPAY ==
[2024-10-25 13:37] LABS: Free T3 3.5 pg/mL (2.18-3.98)
== END | disposition home or self-care (01) ==
PROVIDERS: PCP Family Medicine; Visit Provider Nurse Practitioner Family
DX: E03.9 Hypothyroidism, unspecified (principal)
CPT/HCPCS: 36415; 84439; 84443; 84481

== ENCOUNTER → 2025-01-14 | Outpatient (CLI) | payer OTHER, SELFPAY ==
[2025-01-14 11:42] LABS: Cholesterol 206 mg/dL (<=200); Free T3 3.4 pg/mL (2.18-3.98); Low Density Lipoprotein Calc. 108 mg/dL; Triglycerides 73 mg/dL; Very Low Density Lipoprotein 15 mg/dL (5-40); Vitamin D,25 Hydroxy 25.2 ng/mL (30-100); cholesterol:hdl ratio screen 2.42
== END | disposition home or self-care (01) ==
LOC: MTLAB 08:38
PROVIDERS: PCP Family Medicine; Referring Provider Nurse Practitioner Family; Visit Provider Nurse Practitioner Family
DX: Z13.220 Encounter for screening for lipoid disorders (principal); E03.9 Hypothyroidism, unspecified
CPT/HCPCS: 36415; 80061; 82306; 84439; 84443; 84481